=== PATIENT | male | born 1965 | race Caucasian/White ===

== ENCOUNTER 2021-03-19 15:58 | Inpatient (IN) | payer MEDICAID, SELFPAY ==
[2021-03-19] VITALS (26 sets, daily range): BP systolic 148–172; BP diastolic 80–96; PULSE 66–102; RESP 8–20; TEMP 36–36.8; O2SAT 92–100
--- NOTE | 2021-03-19 16:00 | RT.EKG_ITS ---
APPROVED REPORT Exam: Resting ECG Reason for Exam: Chest Pain Patient Location: E HR:63 bpm ECG Measurements Heart Rate 63 AXIS AK 145 P 61 QRSd 100 QRS -6 QT 429 T -53 QTc 440 Conclusion Sinus rhythm...normal P axis, V-rate 60- 99 Nonspecific T abnormalities, inferior leads...T <-0.10mV, II III aVF. Sinus. No STEMI. I have reviewed and interpreted ECG and agree with software generated interpretation.
--- NOTE | 2021-03-19 16:23 | ED.GENADUL_ITS ---
Discharge Plan Disposition Condition: Stable Discharge Details Chief Complaint: Chest Pain Admit Date/Time: 03/19/21 20:30 Admit Provider: Rubén Jaime Attending Provider: Rubén Jaime Primary Care Provider: Unknown,Unknown ED Provider: Ceci Leon Discharge Instructions Activity:: Activity as Tolerated Equipment/Supplies:: No Equipment Needed Diet:: bland low fat diet Discharge Orders Discharge Orders: Discharge Order (Routine); Ordered 03/22/21 Ordered By: Chelsea Villatoro Discharge Data Discharge Date/Time-TO BE ENTERED AT DEPARTURE: 03/19/21 21:32 Medical Decision Making Patient is a pleasant 55-year-old male, accompanied by his , with chief complaint of chest pain. Patient reports he has had chest pain for years. seems to feel that this is been worse over the past month. He reports that pain is worse with stress, laying supine at night and other potential positional changes. Patient has a very physically demanding job he does not correlate the chest pain with exertional work. He denies any shortness of breath. No pain radiating into the back. Has also noted a lump at the inferior aspect rib cage. Patient has report there is been worked up multiple times for this in the past at [facility], will try to obtain these records. He states that he is using omeprazole with out significant relief. Patient does drink daily, unclear exactly how much but does sound to be significant amount. He also smokes marijuana daily and has done so for several years. He states that he uses Biofreeze on his abdomen and that this does help with his discomfort. States he does have nausea but no vomiting. Reports that he lost approximately 15 pounds over recent months. Denies any change in bowel habits. No recent fevers or chills. No previous abdominal surgeries. On exam, patient appears intoxicated. He appears anxious and easily agitated. Is quite short that he with his . Normal cardiac auscultation. No pain elicited with palpation of the chest. Lungs are clear. His chest pain is elicited with palpation over the epigastric region. No pain with palpation elsewhere about the abdomen. Patient is easily agitated. Also cry quickly, particularly when discussing frustrations and difficulties these been having soc ially over the past year. Primary concern at this time is associated with GI upset. This does fit his history as well with it being worse when laying supine. Patient has been drinking a large amount. Concerned that the alcohol may be causing an ulcer or gastritis. Patient also reports that he drinks alcohol daily and has had improvement with topical pain relief. Questioning if this could be associated with cannabinoid induced hyperemesis and abdominal discomfort. Patient is very frustrated with my concerns for both his alcohol as well as marijuana use. Had lengthy chat with patients . She is very concerned about his overall wellbeing being in current mental status. She reports that he does have some passing thoughts of suicidality at home although he denies this to me. She r eports that he wishes he was not here. She reports that he sleeps most days. Only wakes to have alcohol. States that in the past month he is only works approximately 5 days which is very atypical for him. She states that before this episode, he was typically very outgoing and happy. States that typically their relationship is very good. Since he has not been working, she has taken a second job and has not been home as much this seems to further exacerbate his anger towards her. She reports that his mother approximately a year and a half ago and he began drinking again after that. Had been sober for approximately 4 years leading up to that. Patient has EGD scheduled for next Friday. Discussed my concerns finally regarding his physical health but also his mental health with the patient. He is in agreement to speak with women's soccer coach as well as mental health. My concern for ACS is fairly low as this is sounds much more consistent with GI upset given the positional factor as well is increased alcohol intake. He has not had any exertional symptoms, in fact has not noticed the discomfort when he is at work. However, as an abundance of caution I do feel that evaluation for potential ACS is appropriate. Patient did have imaging recently at [facility]. Will obtain these records. We will hold off on imaging at this time. Also consider potential pancreatitis. Will obtain lipase. Patient spoke with women's soccer coach. Patient spoke with , opening paper work started. He is not will to talk with them currently. Notes from outside hospital reviewed. CT was last completed on 91. Patient had mild peripancreatic inflammation. Patient was also noted to have a renal mass. Patient has been referred for MRI for further evaluation. Labs reviewed. No leukocytosis. Patient is slightly anemic. CMP significant for slightly low magnesium at 1.5, will replenish this orally. Mild transaminitis. Troponin within normal limits. Lipase is elevated at 1096. Concern for pancreatitis. However, based on previous notes it does appear this patient suffers from chronic pancreatitis. Ethyl alcohol 412. Discussed admission with the patient. I do think this would be good for his mental health as well as my concern regarding his alcohol consumption. Patient has had alcohol withdrawals including seizures in the past. Patient placed on CIWA protocol. Consulted with Dr. Jaime who agrees to admission. He would like repeat imaging. Patient admitted for pancreatitis. CT imaging obtained on patient's way to inpatient unit. HPI General Mode of arrival: ambulatory . Date/Time Provider Initiated Documentation: 03/19/21 16:23 . Limitations to Documentation: no limitations . Information obtained by: patient, family () and RN notes reviewed . History of Present Illness 55 year old M presents to the emergency department with the chief complaint of chest/epigastric pain, described as moderate, with intensity rated at 5. Quality is described as aching, and is localized to the chest (lower chest/epigastric pain). Patient reports no radiation. Patient started experiencing this year(s) (unclear exactly how long he has had the discomfort) and it has been intermittent. other things that improve symptom(s), (drinking alcohol) Other factors that worsen symptoms (laying flat) . Patient notes chest pain and loss of appetite; denies cough, fever/chills, nausea/vomiting and shortness of breath. Patient did receive the following treatments prior to arrival, none Related Data Home Medications Medication Instructions Recorded Confirmed amlodipine 10 mg PO DAILY 03/19/21 03/22/21 buspirone 7.5 mg PO BID 03/19/21 03/19/21 losartan 100 mg PO DAILY 03/19/21 03/19/21 metoprolol succinate 200 mg PO DAILY 03/19/21 03/22/21 ondansetron 4 mg PO Q6H PRN PRN 03/19/21 03/22/21 chlordiazepoxide HCl See Rx Instructions .ROUTE 03/22/21 .COMPLEX #21 cap multivitamin [Multiple Vitamins] 1 tab PO QAM #30 tab 03/22/21 omeprazole 40 mg PO DAILY 03/22/21 03/22/21 sucralfate 1 g PO AC & HS #120 tab 03/22/21 thiamine mononitrate (vit B1) 100 mg PO QAM #30 tab 03/22/21 [Vitamin B-1 (mononitrate)] Previous Rx's Medication Instructions Recorded chlordiazepoxide HCl See Rx Instructions .ROUTE 03/22/21 .COMPLEX #21 cap multivitamin [Multiple Vitamins] 1 tab PO QAM #30 tab 03/22/21 sucralfate 1 g PO AC & HS #120 tab 03/22/21 thiamine mononitrate (vit B1) 100 mg PO QAM #30 tab 03/22/21 [Vitamin B-1 (mononitrate)] Allergies Allergy/AdvReac Type Severity Reaction Status Date / Time No Known Allergies Allergy Unverified 03/19/21 16:32 Review of Systems Constitutional Constitutional: Reports as per HPI, Denies chills, Denies fever(s), Denies headache(s) and Reports lethargy ENT Ears, Nose, Mouth, and Throat: Denies dizziness and Denies headache(s) Cardiovascular Cardiovascular: Reports as per HPI, Reports chest pain at rest (when laying flat), Denies chest pain with activity (has exertional job, no pain noted at work), Denies syncope, Denies leg edema, Denies radiating jaw, neck or arm pain, Denies dyspnea and Denies dyspnea on exertion Respiratory Respiratory: Reports as per HPI, Denies cough, Denies pain on inspiration, Denies pain with cough, Denies dyspnea and Denies dyspnea on exertion Gastrointestinal Gastrointestinal: Reports as per HPI, Reports abdominal pain, Denies change in bowel habits, Denies diarrhea, Denies nausea and Denies vomiting Genitourinary Genitourinary: Denies system reviewed and no additional complaints, except as documented (denies change in urinary habits) Musculoskeletal Musculoskeletal: Reports as per HPI and Denies back pain Integumentary/Breasts Skin/Breast: Reports as per HPI and Denies rash Neurologic Neurologic: Reports as per HPI, Reports behavioral changes, Denies dizziness, Denies syncope and Denies headache(s) Psychiatric Psychiatric: Reports abnormal sleep pattern, Reports anxiety, Reports behavioral changes, Reports depression, Denies auditory hallucinations, Reports mood swings, Denies panic attacks, Denies homicidal ideation and Denies suicidal ideation [facility] Medical History (Updated 03/22/21 @ 16:03 by Chelsea Villatoro MD) Alcohol abuse Hypertension Renal mass, right Social History Smoking/Tobacco Use Status: Former Tobacco Use Smoking risk assessment performed?: Yes Alcohol Intake: current Alcohol Intake frequency: 0-2 drinks per day Substance use type: does not use Do you feel safe at home: Yes Do you feel safe in your relationship?: Yes Additional Social history: pt feels too much stress at work, c/o anxiety Exam Const General: cooperative, healthy appearing, uncomfortable, no acute distress, well developed, anxious and intoxicated appearing Nutritional Appearance: average body habitus and well nourished Orientation: alert, awake and oriented x3 HENMT Head: normal to inspection Eyes General: appearance normal, both eyes and all related structures Chest Chest: normal inspection of the chest, normal palpation of entire chest wall and no crepitus Resp Effort & Inspection: normal respiratory effort, able to speak in complete sentences and no respiratory distress Auscultation: clear to auscultation bilaterally, no rales, no rhonchi and no wheezes Cardio Rate: regular rate Rhythm: regular rhythm Heart Sounds: S1 normal and S2 normal GI Inspection: normal to inspection, no edema and non-distended Palpation: soft, no hepatosplenomegaly, not firm, no guarding, not rigid and tender in the epigastrum Auscultation: normal bowel sounds Skin General skin exam: no rashes or lesions noted Trauma: no lacerations or abrasions Neuro General: patient alert, patient awake and patient oriented x3 Cognition: normal cognition Speech: speech normal Gait: normal gait Extrem General: normal to inspection, capillary refill normal, no pedal edema, no calf tenderness and normal gait Psych Appearance: grossly normal and well kempt Mental Status: mental status grossly normal Speech and Movement: agitated Mood: anxious mood and labile mood Affect: labile affect Attitude: guarded Thought Process: normal Thought Content: normal Insight: limited Judgment: limited
[2021-03-19 17:16] LABS: Abs Immature Grans 0.01 10^3/uL (0.0-0.06); Absolute Basophil Count 0.05 10^3/uL (0.0-0.2); Absolute Eosinophil Count 0.26 10^3/uL (0.0-0.7); Absolute Lymphocyte Count 2.21 10^3/uL (1.2-3.4); Absolute Monocyte Count 0.55 10^3/uL (0.1-0.8); Absolute Neutrophil Count 2.95 10^3/uL (1.2-6.7); Basophils % 0.8; Eosinophils % 4.3; HCT 38.2 % (40.0-50.0); HGB 13.2 g/dL (13.5-17.5); Immature Grans % 0.2; Lymphocytes % 36.7; MCH 31.8 pg (27.0-33.0); MCHC 34.6 % (32.0-36.0); MPV 10.9 fL (8.0-11.0); Monocytes % 9.1; Neutrophils % 48.9; Nucleated RBC 0 %; Platelet Count 143 10^3/uL (130-400); RBC 4.15 10^6/uL (4.36-5.78); RDW 12.1 % (11.8-14.1); RDW-SD 41.1 fL; WBC 6.03 10^3/uL (4.4-10.8)
[2021-03-19 17:31] LABS: ETHANOL BLOOD 412.2 mg/dL (<3); Lipase 1096 U/L (73-393); Magnesium 1.5 mg/dL (1.8-2.4); Troponin I < 0.05 ng/mL (<0.06)
[2021-03-19 17:32] LABS: Albumin 4.1 g/dL (3.4-5.0); Alkaline Phosphatase 99 U/L (46-116); BUN 10 mg/dL (7-18); Bilirubin, Total 0.4 mg/dL (0.2-1.0); CREATININE 0.9 mg/dL (0.70-1.30); Calcium 8.6 mg/dL (8.5-10.1); Glucose 128 mg/dL (74-106); Potassium 3.6 mmol/L (3.5-5.1); Sodium 139 mmol/L (136-145); Total Protein 8.1 g/dL (6.4-8.2)
[2021-03-19 17:33] LABS: ALT 72 U/L (16-63); AST 60 U/L (15-37); Anion Gap 11.4 mmol/L (3-11); CO2 26.6 mmol/L (21.0-32.0); Chloride 101 mmol/L (98-107)
[2021-03-19] MEDS: Lactated Ringers 1,000 ML 1000 ML IV (17:51)
--- NOTE | 2021-03-19 20:15 | DI.CT_ITS ---
Exam(s) CT ABDOMEN PELVIS W EXAM: CT ABDOMEN PELVIS W CLINICAL HISTORY: pancreatitis, epigastric pain. TECHNIQUE: Imaging Protocol: Axial computed tomography images with coronal and sagittal reformatted images were created and reviewed CONTRAST MATERIAL: Intravenous: Omnipaque 100cc Oral: None COMPARISON: No exams were available for comparison FINDINGS: VISUALIZED LUNG BASES: No significant nodules nor pleural effusions evident. ABDOMEN: There is no ascites. LIVER: Liver is hypodense implying steatosis. There are no discrete focal hepatic lesions. GALLBLADDER/BILIARY: No obvious calcified gallstones. However, there appears to be a small amount of fluid around the gallbladder, possibly significant. CBD is not dilated. PANCREAS: Peripancreatic streaking is noted consistent with acute pancreatitis. Pancreatic duct is n ot dilated. No evidence of obvious pancreatic necrosis. SPLEEN: Spleen is not enlarged. No obvious intrasplenic lesions. Splenic and portal veins are paten t. ADRENALS: There are no significant adrenal masses. KIDNEYS:There is a small exophytic cyst off the medial aspect of the lower pole left kidney measuring 9 x 8 millimeters. No other left kidney findings. There is, however, a partially exophytic mass of f the lateral cortex of the right kidney which measures 2 x 1.6 cm. This is too dense to be a simple cyst. Follow-up ultrasound recommended no calculi. No hydronephrosis. No hydroureter. No obvious focal abnormality in the urinary bladder.. ABDOMINAL AORTA: Abdominal aorta is not enlarged. LYMPH NODES:There is no retroperitoneal nor paraaortic adenopathy. ABDOMINAL WALL: Small fat containing umbilical hernia. GI: There is no evidence of bowel obstruction, free air, nor abscess. PELVIS: GI: No evidence of appendicitis.No evidence of sigmoid diverticulitis. LYMPH NODES: There is no intrapelvic nor inguinal adenopathy. REPRODUCTIVE: Prostate size upper normal. URINARY BLADDER: No calculi nor obvious masses evident OSSEOUS: Disc space narrowing L5-S1. No significant osseous lesions IMPRESSION: 1. Main acute finding here is acute pancreatitis. There is peripancreatic streaking but presently no evidence fluid collection or pseudocyst. 2. Mild amount of fluid around the gallbladder. No obvious calcified gallstones. This could be furt her investigated with ultrasound. 3. In the lateral cortex of the right kidney there is a 2 x 1.6 cm partially exophytic nodule which i s too dense to be a simple cyst in either represents complicated cyst or neoplasm. Recommend follow- up ultrasound. RADIATION DOSE DELIVERED: 764.06mGy.cm Total DLP DATA REPOSITORY: All CT scans at this facility are submitted to the National Radiology Data Registry (NRDR) Dose Index Registry (DIR) with the [employer] (ACR). RADIATION OPTIMIZATION: All CT scans at this facility use at least one of these dose optimization te chniques: automated exposure control; mA and/or kV adjustment per patient size (includes targeted exa ms where dose is matched to clinical indication); or iterative reconstruction.
--- NOTE | 2021-03-19 20:18 | W.PM.HP.N ---
Date of service: 03/19/21 Time of Service: 20:18 Assessment and Plan Assessment and plan (1) Pancreatitis: Status: Chronic Assessment and plan: Alcoholic pancreatitis. Will place NPO with IVF and prn analgesics and antiemetics. For the alcohol will place on scheduled Librium along with CIWA. 1. Pancreatitis: NPO, IVF, prn analgesics and antiemetics. I have also requested CT imaging from ER 2. EtOH: Scheduled Librium, CIWA, banana bag 3. HTN: usual meds History of Present Illness History of Present Illness Chief Complaint: abd pain Narrative: 55 male with h/o alcohol abuse, reports two years of epigastric pain, non-radiating. Pain is worsened by supine position and by eating solids, though is eased by some liquids, such as chicken broth and, he says, vodka. He notes that in fact he has hardly eaten at all for the past week. e generally gets his care at [facility] and CT from last month demonstrated peripancreatic stranding and, incidentally, a renal mass. He comes in tonightt due to ongoing pain and nausea and, he says, because he dosen't think the folks at [facility] are managing him properly. Here in ER findings of note for normal electrolytes save a Mg 0f 1.5, and lipase 1096, AST 60, ALT 92. I was asked to evaluate for admission. Last drink just prior to visit and EtOH level 412. Says he once had withdrawal seizures when he stopped drinking suddenly. Review of Systems All systems reviewed & are unremarkable except as noted in HPI and below [facility] Medical History Alcohol abuse Hypertension Social History Smoking/Tobacco Use Status: Former Tobacco Use Smoking risk assessment performed?: Yes Alcohol Intake: current Alcohol Intake frequency: 0-2 drinks per day Substance use type: does not use Do you feel safe at home: Yes Do you feel safe in your relationship?: Yes Additional Social history: pt feels too much stress at work, c/o anxiety Meds Allergies and Home Medications Allergies Allergy/AdvReac Type Severity Reaction Status Date / Time No Known Allergies Allergy Unverified 03/19/21 16:32 Home Medications Medication Instructions Recorded Confirmed Type amlodipine 03/19/21 History buspirone 7.5 mg PO BID 03/19/21 03/19/21 History losartan 100 mg PO DAILY 03/19/21 03/19/21 History metoprolol succinate PO 03/19/21 History omeprazole mg PO BID 03/19/21 History ondansetron 4 mg PO Q6H 03/19/21 03/19/21 History Exam Narrative Exam Narrative: 160/95, 81, 36.0, 16, 100% RA. HEENT atraumatic, anicteric; neck supple; lungs clear; heart RRR; abdomen soft and NT w/o HSM; extremities w/o edema; neuro Ox3, lucid, moves all 4s Results Labs Result diagrams: 03/19/21 17:01 03/19/21 17:01 Labs: Laboratory Results - last 24 hr 03/19/21 03/19/21 03/19/21 17:01 17:01 17:01 WBC 6.03 RBC 4.15 L Hgb 13.2 L Hct 38.2 L MCV 92.0 MCH 31.8 MCHC 34.6 RDW 12.1 Plt Count 143 MPV 10.9 Immature Gran % 0.2 Neutrophils % 48.9 Lymphocytes % 36.7 Monocytes % 9.1 Eosinophils % 4.3 Basophils % 0.8 Nucleated RBC % 0 Absolute Neutrophils 2.95 Absolute Lymphocytes 2.21 Absolute Monocytes 0.55 Absolute Eosinophils 0.26 Absolute Basophils 0.05 Sodium 139 Potassium 3.6 Chloride 101 Carbon Dioxide 26.6 Anion Gap 11.4 H BUN 10 Creatinine 0.9 Estimated GFR/1.73 m2 >= 60.00 Glucose 128 H Calcium 8.6 Magnesium 1.5 L Total Bilirubin 0.4 AST 60 H ALT 72 H Alkaline Phosphatase 99 Troponin I < 0.05 Total Protein 8.1 Albumin 4.1 Lipase 1096 H Ethyl Alcohol 412.2 Last Vital Signs Temp 36 C L 03/19/21 16:25 Pulse 81 03/19/21 16:25 Resp 16 03/19/21 16:38 BP 160/95 H 03/19/21 16:25 Pulse Ox 100 03/19/21 16:25 PAWSS Have you Been Recently Intoxicated or Drunk Within the Last 30 days?: Yes Have you Ever Experienced Previous Episodes of Alcohol Withdrawal?: No Have you ever Experienced Withdrawal Seizures?: No Have you ever Experienced Delirium Tremens(DT)s?: Yes Have you ever undergone Alcohol Rehabilitation Treatment (i.e, inpt ot outpatient treatment programs)?: Yes Have you ever Experienced Blackouts?: No Have you ever Combined Alcohol with other Downers within the last 90 days?: No Have you ever Combined Alcohol with any other Substance of Abuse during the last 90 days?: Yes Positive Blood Alcohol level on Presentation? [PCS.BAL]: Unable to Obtain Evidence of Increased Autonomic Activity (i.e. HR>120, tremor, sweating, agitation, nausea)?: No Result: 5
[2021-03-19] MEDS: Normal Saline - Diluent 50 ML VIAL IV (21:29)
[2021-03-19] MEDS: Omnipaque 350 MG/ML 100 ML BTL IJ (21:29)
--- NOTE | 2021-03-19 22:50 | DI.VRAD_ITS ---
PROCEDURE INFORMATION: Exam: CT Abdomen And Pelvis With Contrast Exam date and time: 03/19/2021 8:18 PM Age: 55 years old Clinical indication: Abdominal pain; Patient HX: Pancreatitis, epigastric pain TECHNIQUE: Imaging protocol: Computed tomography of the abdomen and pelvis with contrast. COMPARISON: No relevant prior studies available. FINDINGS: Liver: Normal. No mass. Gallbladder and bile ducts: Normal. No calcified stones. No ductal dilation. Pancreas: [id number] peripancreatic fat stranding surrounding the head and neck of the pancreas and to a lesser extent the body and tail. Spleen: Normal. No splenomegaly. Adrenal glands: Normal. No mass. Kidneys and ureters: Exophytic cortical renal cyst measuring 8 mm arising from the midpole of the left kidney. No hydronephrosis. Bilateral diffusely distended ureters most likely secondary to urinary reflux. Stomach and bowel: Unremarkable. No obstruction. No mucosal thickening. Appendix: No evidence of appendicitis. Intraperitoneal space: Unremarkable. No free air. No significant fluid collection. Vasculature: The vasculature demonstrates diffuse mild atherosclerotic calcification. Lymph nodes: Unremarkable. No enlarged lymph nodes. Urinary bladder: Unremarkable as visualized. Reproductive: Unremarkable as visualized. Bones/joints: Unremarkable. No acute fracture. Soft tissues: Unremarkable. Other findings: Heterogeneous nodular lesion most likely solid measuring 2.1 cm. IMPRESSION: 1. Findings compatible with acute pancreatitis. No evidence of peripancreatic fluid collections or pseudocyst. 2.Heterogeneous nodular lesion most likely solid measuring 2.1 cm suspicious for neoplasia. Recommend further evaluation with ultrasound and tissue sampling. 3. Bilateral diffusely distended ureters most likely secondary to urinary reflux. Dictated and Authenticated by: Javi Bhatt MD. Ordering:SYLVIA Ornelas MD
[2021-03-20] VITALS (79 sets, daily range): BP systolic 127–174; BP diastolic 71–115; PULSE 69–126; RESP 9–25; TEMP 35.9–37.2; O2SAT 93–100
[2021-03-20] MEDS: MAGNESIUM SULFATE 8.12 MEQ, MULTIVITAMIN 10 ML, THIAMINE 100 MG, FOLIC ACID 1 MG in Nor... 168.867 MG IV (00:15)
[2021-03-20] MEDS: MAGNESIUM SULFATE 2 GM/50 ML BAG IVPB (00:22)
[2021-03-20] MEDS: Folic Acid 50 MG/10 ML VIAL ×2 (00:37→05:24)
[2021-03-20] MEDS: Thiamine 200 MG/2 ML VIAL ×2 (00:37→05:23)
--- NOTE | 2021-03-20 06:12 | NUR.NOTE ---
Spoke with pts . She states he drinks approx 2 man cans of twisted tea a day and a pint of vodlka. She states she is really concerned about him wanting to just leave AMA to be able to go home and drink.
[2021-03-20] MEDS: Lactated Ringers 1,000 ML 150 ML IV ×2 (06:15→13:38)
[2021-03-20 07:43] LABS: Anion Gap 14.2 mmol/L (3-11); BUN 5 mg/dL (7-18); CO2 23.8 mmol/L (21.0-32.0); CREATININE 0.8 mg/dL (0.70-1.30); Calcium 7.8 mg/dL (8.5-10.1); Chloride 102 mmol/L (98-107); Glucose 105 mg/dL (74-106); Lipase 591 U/L (73-393); Sodium 140 mmol/L (136-145)
[2021-03-20 08:07] LABS: COVID-19 PCR Negative (Negative); Source Nasal/Nares
--- NOTE | 2021-03-20 08:20 | W.PM.PROGNOT ---
Date of Service Date of service: 03/20/21 Time of Service: 13:05 Assessment and Plan Assessment and plan (1) Pancreatitis: Status: Chronic Assessment and plan: Alcoholic pancreatitis. Improving. Continue IVF and trial clear liquid diet. (2) Alcohol withdrawal: Status: Acute Assessment and plan: Seems to be doing well on the benzodiazepine EtOH w/d protocol. Will provide MVI/thiamine. Monitor in the ICU on CIWA. Continue scheduled librium. Low threshold to switch to the phenobarbital protocol should the withdrawal escalate. (3) H/O gastric ulcer: Status: Acute Assessment and plan: Started on PPI/carafate. D/c chemical DVT ppx and provide mechanical DVT ppx. The patient should follow up for the EGD as outpatient - may have to be rescheduled. (4) Renal mass, right: Status: Acute Assessment and plan: Seen by urology - will need outpatient bx. (5) Hypokalemia: Status: Acute Assessment and plan: Replete, recheck in am (6) Hypomagnesemia: Status: Acute Assessment and plan: Replete, recheck in am (7) DVT prophylaxis: Status: Acute Assessment and plan: SCDs Chemical DVT ppx is on hold due to reported h/o gastric ulcers. (8) Discharge planning issues: Status: Acute Assessment and plan: Full code Upgraded to ICU level of care. Total Critical Care Time 35 minutes. Subjective Subjective Interval history since last seen: Withdrawing from alcohol. CIWA 22. Sweating, nauseated/dry heaving, confused this am. Since then, was medicated with scheduled librium and prn IV lorazepam and has been calm, sleeping, cooperative. Per , he was supposed to have an EGD at [facility] this week. The patient denies dizziness, chest pain, shortness of breath. He also denies nausea and abdominal pain. He is interested in trying a diet. Exam Narrative Exam Narrative: General: Somnolent middle-aged male who is easily arousable, A&Ox3 (initially thinks it's [facility], but quickly remembers that he is at [facility]). Not at all tremulous. HEENT: EOMI, MMM Heart: RRR, no m/r/g Lungs: CTAB Abdomen: soft, nontender, nondistended Extremities: no edema BLE's Objective Last Vital Signs Temp 37.2 C 03/20/21 03:34 Pulse 87 03/20/21 06:30 Resp 19 03/20/21 06:40 BP 160/85 H 03/20/21 06:30 Pulse Ox 97 03/20/21 06:40 Laboratory Results - last 24 hr 03/19/21 03/19/21 03/19/21 17:01 17:01 17:01 WBC 6.03 RBC 4.15 L Hgb 13.2 L Hct 38.2 L MCV 92.0 MCH 31.8 MCHC 34.6 RDW 12.1 Plt Count 143 MPV 10.9 Immature Gran % 0.2 Neutrophils % 48.9 Lymphocytes % 36.7 Monocytes % 9.1 Eosinophils % 4.3 Basophils % 0.8 Nucleated RBC % 0 Absolute Neutrophils 2.95 Absolute Lymphocytes 2.21 Absolute Monocytes 0.55 Absolute Eosinophils 0.26 Absolute Basophils 0.05 Sodium 139 Potassium 3.6 Chloride 101 Carbon Dioxide 26.6 Anion Gap 11.4 H BUN 10 Creatinine 0.9 Estimated GFR/1.73 m2 >= 60.00 Glucose 128 H Calcium 8.6 Magnesium 1.5 L Total Bilirubin 0.4 AST 60 H ALT 72 H Alkaline Phosphatase 99 Troponin I < 0.05 Total Protein 8.1 Albumin 4.1 Lipase 1096 H Ethyl Alcohol 412.2 COVID-19 Source SARS-CoV-2 (PCR) 03/19/21 03/19/21 03/20/21 19:28 21:00 06:12 WBC RBC Hgb Hct MCV MCH MCHC RDW Plt Count MPV Immature Gran % Neutrophils % Lymphocytes % Monocytes % Eosinophils % Basophils % Nucleated RBC % Absolute Neutrophils Absolute Lymphocytes Absolute Monocytes Absolute Eosinophils Absolute Basophils Sodium 140 Potassium 3.0 L Chloride 102 Carbon Dioxide 23.8 Anion Gap 14.2 H BUN 5 L Creatinine 0.8 Estimated GFR/1.73 m2 >= 60.00 Glucose 105 Calcium 7.8 L Magnesium Total Bilirubin AST ALT Alkaline Phosphatase Troponin I Cancelled Total Protein Albumin Lipase 591 H Ethyl Alcohol COVID-19 Source Nasal/Nares SARS-CoV-2 (PCR) Negative PAWSS Have you Been Recently Intoxicated or Drunk Within the Last 30 days?: Yes Have you Ever Experienced Previous Episodes of Alcohol Withdrawal?: No Have you ever Experienced Withdrawal Seizures?: No Have you ever Experienced Delirium Tremens(DT)s?: Yes Have you ever undergone Alcohol Rehabilitation Treatment (i.e, inpt ot outpatient treatment programs)?: Yes Have you ever Experienced Blackouts?: No Have you ever Combined Alcohol with other Downers within the last 90 days?: No Have you ever Combined Alcohol with any other Substance of Abuse during the last 90 days?: Yes Positive Blood Alcohol level on Presentation? [PCS.BAL]: Unable to Obtain Evidence of Increased Autonomic Activity (i.e. HR>120, tremor, sweating, agitation, nausea)?: No Result: 5
[2021-03-20] MEDS: Pantoprazole 40 MG VIAL IVP ×2 (08:35→19:59)
[2021-03-20] MEDS: amLODIPine 10 MG TAB PO (08:36)
[2021-03-20] MEDS: Ondansetron 4 MG/2 ML VIAL IVP (08:36)
[2021-03-20] MEDS: Enoxaparin 40 MG/0.4 ML SYR SC (08:36)
[2021-03-20] MEDS: MAGNESIUM SULFATE 4 GM/100 ML BAG IVPB (08:36)
[2021-03-20] MEDS: LORazepam 1 MG TAB PO/SL ×2 (08:36→17:02)
[2021-03-20] MEDS: Multivitamin TAB 1 TAB PO (08:37)
[2021-03-20] MEDS: Thiamine 100 MG TAB PO (08:37)
[2021-03-20] MEDS: chlordiazePOXIDE 25 MG CAP PO ×4 (08:37→20:00)
[2021-03-20] MEDS: Losartan 50 MG TAB 100 MG PO (08:37)
[2021-03-20] MEDS: Metoprolol CR 50 MG TABCR 200 MG PO (08:37)
[2021-03-20] MEDS: Folic Acid 1 MG TAB PO (08:38)
[2021-03-20] MEDS: Potassium Chloride 20 MEQ TABCR PO (08:38)
[2021-03-20] MEDS: POTASSIUM CHLORIDE 20 MEQ/100 ML BAG 50 MEQ IVPB ×4 (08:38→13:57)
[2021-03-20] MEDS: Normal Saline Flush 10 ML SYR IVP ×2 (08:40→20:05)
--- NOTE | 2021-03-20 08:56 | W.UROLOGYCON ---
Date of service: 03/20/21 Assessment and Plan Assessment and plan (1) Renal mass, right: Status: Acute Assessment and plan: The patient is sedated and is not able to interact with me at the current time. I will attempt to discuss her findings with him later during his hospitalization. Our typical recommendation would be a percutaneous biopsy. Depending on the results, treatments generally range from observation to partial nephrectomy to ablation (cryotherapy or HIFU). These technologies are not available locally, and will require a referral to a tertiary care center after he is discharged. History of Present Illness History of Present Illness Chief Complaint: Renal mass Narrative: This is a 55-year-old gentleman who is currently hospitalized with pancreatitis and alcohol withdrawal. He has been seen both at [facility] and at our facility and has had imaging studies. He has a newly identified right renal mass which has not yet been investigated. I was not able to discuss this with the patient initially due to his mental status and medications, but I was able to discuss it with the patient on 03/22/2021 prior to his discharge. He tells me he is aware of the mass but is not having any flank pain. He has seen one episode of gross hematuria. I do not have any microscopic urinalysis results He has not had any previous urologic surgery Review of Systems Unobtainable due to mental status [facility] Medical History (Updated 03/22/21 @ 16:03 by Chelsea Villatoro MD) Alcohol abuse Hypertension Renal mass, right Social History Smoking/Tobacco Use Status: Former Tobacco Use Smoking risk assessment performed?: Yes Alcohol Intake: current Alcohol Intake frequency: 0-2 drinks per day Substance use type: does not use Do you feel safe at home: Yes Do you feel safe in your relationship?: Yes Additional Social history: pt feels too much stress at work, c/o anxiety Exam Narrative Exam Narrative: He is sedated at the time of my initial evaluation His vital signs are documented elsewhere in his chart I reviewed his CT scan (done with IV contrast) on the PACS system. There is a 2 to 3 cm peripherally located renal mass on the right kidney. The mass appears solid (I measure it at 77 Hounsfield units). I was able to obtain previous films from [facility]. The lesion was a identified on a similar CT of the abdomen and pelvis from last month. An abdominal ultrasound done a few years ago did not demonstrate any solid or cystic right sided renal mass. The initial reading of the CT from the [facility] radiologist mentions dilated ureters likely related to reflux, but I do not visualize dilated ureters on either of his scans. Results Last Vital Signs Temp 37.2 C 03/20/21 03:34 Pulse 87 03/20/21 06:30 Resp 19 03/20/21 06:40 BP 160/85 H 03/20/21 06:30 Pulse Ox 97 03/20/21 06:40 Labs Result diagrams: 03/22/21 06:53 03/22/21 06:53 Labs: Laboratory Results - last 24 hr 03/19/21 03/19/21 03/19/21 17:01 17:01 17:01 WBC 6.03 RBC 4.15 L Hgb 13.2 L Hct 38.2 L MCV 92.0 MCH 31.8 MCHC 34.6 RDW 12.1 Plt Count 143 MPV 10.9 Immature Gran % 0.2 Neutrophils % 48.9 Lymphocytes % 36.7 Monocytes % 9.1 Eosinophils % 4.3 Basophils % 0.8 Nucleated RBC % 0 Absolute Neutrophils 2.95 Absolute Lymphocytes 2.21 Absolute Monocytes 0.55 Absolute Eosinophils 0.26 Absolute Basophils 0.05 Sodium 139 Potassium 3.6 Chloride 101 Carbon Dioxide 26.6 Anion Gap 11.4 H BUN 10 Creatinine 0.9 Estimated GFR/1.73 m2 >= 60.00 Glucose 128 H Calcium 8.6 Magnesium 1.5 L Total Bilirubin 0.4 AST 60 H ALT 72 H Alkaline Phosphatase 99 Troponin I < 0.05 Total Protein 8.1 Albumin 4.1 Lipase 1096 H Ethyl Alcohol 412.2 COVID-19 Source SARS-CoV-2 (PCR) 03/19/21 03/19/21 03/20/21 19:28 21:00 06:12 WBC RBC Hgb Hct MCV MCH MCHC RDW Plt Count MPV Immature Gran % Neutrophils % Lymphocytes % Monocytes % Eosinophils % Basophils % Nucleated RBC % Absolute Neutrophils Absolute Lymphocytes Absolute Monocytes Absolute Eosinophils Absolute Basophils Sodium 140 Potassium 3.0 L Chloride 102 Carbon Dioxide 23.8 Anion Gap 14.2 H BUN 5 L Creatinine 0.8 Estimated GFR/1.73 m2 >= 60.00 Glucose 105 Calcium 7.8 L Magnesium Total Bilirubin AST ALT Alkaline Phosphatase Troponin I Cancelled Total Protein Albumin Lipase 591 H Ethyl Alcohol COVID-19 Source Nasal/Nares SARS-CoV-2 (PCR) Negative
[2021-03-20] MEDS: LORazepam 2 MG/ML VIAL IVP (09:11)
--- NOTE | 2021-03-20 09:11 | PDOC.CMIN ---
- If Service Date Differs Date of service: 03/20/21 Time of Service: 09:11 Care Management Initial Assess REASON FOR HOSPITALIZATION:: Pancreatitis PAST MEDICAL HISTORY/PAST SURGICAL HISTORY:: Medical History . Alcohol abuse. Hypertension PREVIOUS FUNCTIONAL STATUS/SOCIAL/FAMILY SUPPORTS:: Juancarlos, ty Chen, lives in [place], [place] with his Arline. They do not have any children. April works at a [employer] and is independent at baseline. He does not currently receive any community services. CURRENT FUNCTIONAL STATUS:: April was lying in bed when CM met with him. He was a bit sleepy but willing to engage in conversation. This morning his CIWA score was 22 and he required 4mg of IV Ativan. He explained that he has been having pain from his pancreatitis and drinks alcohol to dull the pain. Per staff, he denied that his symptoms are related to alcohol withdrawal although he did share that he has had seizures before when trying to detox. A referral for a [facility] will be placed when he is more awake, hopefully tomorrow. ADVANCE DIRECTIVES:: none on file at [facility] Has patient been provided with info about the portal/API?: Yes Did the patient sign up for the portal?: No CODE STATUS:: Full Code INSURANCE COVERAGE / FINANCIAL ISSUES:: Medicaid CURRENT HOME/COMMUNITY SERVICES/EQUIPMENT:: none PRIMARY CARE PHYSICIAN:: none local POTENTIAL DISCHARGE NEEDS:: Follow up with PCP and plan of care. May benefit from alcohol rehab PATIENT/FAMILY EDUCATION NEEDS:: Review of discharge instructions,medications, activity, follow up plan, Ask Me Three TRANSPORTATION:: via private vehicle with family PLAN:: April will likely be discharged home with no new services except for help with his substance use disorder, if he is agreeable. He will follow up with his community providers and plan of care and transport with family. CM will continue to support Juancarlos and assess for ongoing discharge needs.
--- NOTE | 2021-03-20 10:56 | PHA.REVIEW ---
Pharmacy Admission Review - Admission Clinical Review (Last Updated 03/20/21 @ 08:59 by Feliz Clemens MD) Renal mass, right (Acute) No Known Allergies Allergy (Unverified 03/19/21 16:32) Resuscitation Status Full Code Height 6 ft Weight 80.7 kg - Renal Dosing Renal Dosing: BUN 5 mg/dL (7-18) L 03/20/21 06:12 Creatinine 0.8 mg/dL (0.70-1.30) 03/20/21 06:12 Medications needing adjustments: Reviewed (CRCL ~114ML/MIN) - Anticoagulation Anticoagulation: Hgb 13.2 g/dL (13.5-17.5) L 03/19/21 17:01 Hct 38.2 % (40.0-50.0) L 03/19/21 17:01 Plt Count 143 10^3/uL (130-400) 03/19/21 17:01 Creatinine 0.8 mg/dL (0.70-1.30) 03/20/21 06:12 DVT Prophylaxis: Reviewed Medications: Enoxaparin Therapeutic Anticoagulation: N/A - Relevant Labs Sodium 140 mmol/L (136-145) 03/20/21 06:12 Potassium 3.0 mmol/L (3.5-5.1) L 03/20/21 06:12 Chloride 102 mmol/L (98-107) 03/20/21 06:12 Magnesium 1.5 mg/dL (1.8-2.4) L 03/19/21 17:01 Electrolytes, C-Reactive P, ESR: Reviewed (MAG AND K REPLACED) - DM Control DM Control: Glucose 105 mg/dL (74-106) 03/20/21 06:12 Insulin Dosing: N/A - Heart Failure/NE Heart Failure/NE: Troponin I Cancelled 03/19/21 19:28 - BP Control BP Control: Blood Pressure [Left Arm] 154/88 Blood Pressure [Left Arm] 145/72 Blood Pressure 127/71 Blood Pressure 160/85 Blood Pressure 174/115 Blood Pressure 165/85 Blood Pressure 148/81 Blood Pressure 144/87 Blood Pressure 159/83 Blood Pressure 154/88 Blood Pressure 153/83 Blood Pressure 165/91 Blood Pressure 163/86 Blood Pressure 142/71 Blood Pressure 141/76 Blood Pressure 145/72 Blood Pressure 157/87 Blood Pressure 152/80 Blood Pressure 155/87 Blood Pressure 148/89 Blood Pressure 154/85 Blood Pressure 153/80 - Qtc Review If Elevated: N/A (440) - IV to PO Switch IV Medications: Reviewed (IVF AND SOME MEDS IV) - Home Meds Home Med List reviewed: Reviewed (meds ordered but home list has ? next to some meds so may not have been reviewed by provider yet) - Current meds Current Medication Order Review: Reviewed - Comments Comments/Follow Ups: CIWA, lorazepam prn and CONNIE librium. may switch to phenobarb per MD,
[2021-03-20] MEDS: Sucralfate 1 GM TAB PO ×2 (17:02→21:39)
[2021-03-21] VITALS (30 sets, daily range): BP systolic 123–164; BP diastolic 79–129; PULSE 63–97; RESP 7–23; TEMP 36.1–37.1; O2SAT 99
[2021-03-21] MEDS: Lactated Ringers 1,000 ML 150 ML IV (03:12)
[2021-03-21] MEDS: LORazepam 1 MG TAB PO/SL ×4 (06:24→20:48)
[2021-03-21 07:41] LABS: ALT 62 U/L (16-63); AST 64 U/L (15-37); Albumin 3.8 g/dL (3.4-5.0); Alkaline Phosphatase 108 U/L (46-116); Anion Gap 9.1 mmol/L (3-11); BUN 6 mg/dL (7-18); Bilirubin, Direct 0.1 mg/dL (0.0-0.2); Bilirubin, Total 0.6 mg/dL (0.2-1.0); CO2 27.9 mmol/L (21.0-32.0); CREATININE 0.9 mg/dL (0.70-1.30); Calcium 8.3 mg/dL (8.5-10.1); Chloride 98 mmol/L (98-107); Glucose 186 mg/dL (74-106); Magnesium 1.7 mg/dL (1.8-2.4); Potassium 3.1 mmol/L (3.5-5.1); Sodium 135 mmol/L (136-145); Total Protein 8.1 g/dL (6.4-8.2)
--- NOTE | 2021-03-21 08:12 | W.PM.PROGNOT ---
Date of Service Date of service: 03/21/21 Time of Service: 10:38 Assessment and Plan Assessment and plan (1) Alcohol withdrawal: Status: Acute Assessment and plan: Concern that it might actually be escalating. Keep in the ICU until at least the afternoon to see in which direction the withdrawal is going. Continue scheduled librium and prn ativan per CIWA. Discussed with Dr Alan - will avoid switching to phenobarbital at this point as the patient has a large amount of benzos on board. Continue vitamins. (2) Pancreatitis: Status: Chronic Assessment and plan: Alcoholic pancreatitis. Advance diet to bland low acid. D/c IVF. (3) H/O gastric ulcer: Status: Acute Assessment and plan: Continue PPI/carafate. The patient should follow up for the EGD as outpatient - needs to be rescheduled. I do not think he should have an EGD on this admission and certainly not while he is going through alcohol withdrawal unless he bleeds - which he is not. (4) Renal mass, right: Status: Acute Assessment and plan: Seen by urology - will need outpatient bx. This is being arranged via the urology office. (5) Hypokalemia: Status: Acute Assessment and plan: Replete, recheck in am (6) Hypomagnesemia: Status: Acute Assessment and plan: Replete, recheck in am (7) DVT prophylaxis: Status: Acute Assessment and plan: SCDs Chemical DVT ppx is on hold due to reported h/o gastric ulcers. (8) Discharge planning issues: Status: Acute Assessment and plan: Full code Keep in ICU until at least this afternoon to get a better sense of which direction his withdrawal is going. Discussed with Dr Alan. Subjective Subjective Interval history since last seen: Denies dizziness, chest pain, shortness of breath, nausea, abdominal pain. Tolerating PO(clears). Diet is being advanced to bland low fat this am. A&Ox1, CIWA 8 this am. Has just received 2 mg of IV ativan. Confirms he has a h/o of EtOH withdrawal seizure. Exam Narrative Exam Narrative: General: Somnolent middle-aged male who is easily arousable, not tremulous at the time of my exam, A&Ox1-2 (still thinks it's [facility]) HEENT: EOMI, MMM Heart: RRR, no m/r/g Lungs: CTAB Abdomen: soft, nontender, nondistended Extremities: no edema BLE's Objective Last Vital Signs Temp 36.8 C 03/21/21 04:25 Pulse 82 03/21/21 04:00 Resp 15 03/21/21 04:25 BP 161/101 H 03/21/21 04:00 Pulse Ox 99 03/21/21 04:25 Laboratory Results - last 24 hr 03/19/21 03/21/21 21:00 06:20 Sodium 135 L Potassium 3.1 L Chloride 98 Carbon Dioxide 27.9 Anion Gap 9.1 BUN 6 L Creatinine 0.9 Estimated GFR/1.73 m2 >= 60.00 Glucose 186 H D Calcium 8.3 L Magnesium 1.7 L Total Bilirubin 0.6 Conjugated Bilirubin 0.1 AST 64 H ALT 62 Alkaline Phosphatase 108 Total Protein 8.1 Albumin 3.8 SARS-CoV-2 (PCR) Negative PAWSS Have you Been Recently Intoxicated or Drunk Within the Last 30 days?: Yes Have you Ever Experienced Previous Episodes of Alcohol Withdrawal?: No Have you ever Experienced Withdrawal Seizures?: No Have you ever Experienced Delirium Tremens(DT)s?: Yes Have you ever undergone Alcohol Rehabilitation Treatment (i.e, inpt ot outpatient treatment programs)?: Yes Have you ever Experienced Blackouts?: No Have you ever Combined Alcohol with other Downers within the last 90 days?: No Have you ever Combined Alcohol with any other Substance of Abuse during the last 90 days?: Yes Positive Blood Alcohol level on Presentation? [PCS.BAL]: Unable to Obtain Evidence of Increased Autonomic Activity (i.e. HR>120, tremor, sweating, agitation, nausea)?: No Result: 5
[2021-03-21] MEDS: Pantoprazole 40 MG VIAL IVP (08:37)
[2021-03-21] MEDS: Normal Saline Flush 10 ML SYR IVP ×2 (08:38→17:24)
[2021-03-21] MEDS: Thiamine 100 MG TAB PO (08:39)
[2021-03-21] MEDS: Folic Acid 1 MG TAB PO (08:39)
[2021-03-21] MEDS: Losartan 50 MG TAB 100 MG PO (08:39)
[2021-03-21] MEDS: chlordiazePOXIDE 25 MG CAP PO ×4 (08:39→20:38)
[2021-03-21] MEDS: amLODIPine 10 MG TAB PO (08:39)
[2021-03-21] MEDS: Sucralfate 1 GM TAB PO ×4 (08:39→20:38)
[2021-03-21] MEDS: Metoprolol CR 50 MG TABCR 200 MG PO (08:39)
[2021-03-21] MEDS: Multivitamin TAB 1 TAB PO (08:39)
[2021-03-21] MEDS: POTASSIUM CHLORIDE 20 MEQ/100 ML BAG 50 MEQ IVPB ×4 (08:40→13:13)
[2021-03-21] MEDS: MAGNESIUM SULFATE 2 GM/50 ML BAG IVPB (08:41)
--- NOTE | 2021-03-21 08:56 | PUCC_ITS ---
General Date of Service Date of service: 03/21/21 Time of Service: 08:15 Reason for Admission to ICU: Pancreatitis, alcohol withdrawal Assessment and Plan Assessment and plan (1) Alcohol withdrawal: Status: Acute Qualifiers: Complication of substance-induced condition: uncomplicated Qualified Code(s): F10.230 - Alcohol dependence with withdrawal, uncomplicated (2) Hypomagnesemia: Status: Acute (3) Hypokalemia: Status: Acute (4) Renal mass, right: Status: Acute (5) H/O gastric ulcer: Status: Acute (6) Pancreatitis: Status: Chronic Qualifiers: Chronicity: chronic Pancreatitis type: alcohol induced Qualified Code(s): K86.0 - Alcohol-induced chronic pancreatitis (7) Hypocalcemia: Status: Acute Assessment and plan: This is a 55-year-old man with alcohol abuse and chronic pancreatitis who presents with acute abdominal pain likely secondary to acute on chronic pancreatitis and alcohol withdrawal. He has been well managed on the floor however required ICU transfer in the setting of increasing benzodiazepine need for his alcohol withdrawal. He is being maintained on Librium and as needed Ativan per [facility] protocol. Is doing quite well this morning with improved abdominal pain, he tolerated p.o. yesterday, and no active signs of withdrawal during my assessment. He would be safe for transfer back to [facility] if he is no longer tolerating higher doses of Ativan. Recommendations Pulmonary: No acute concerns Cardiac: h/o HTN - continue home meds - care per hospitalist service Renal: Incidentally discovered renal mass - outpatient biopsy likely needed - urology has been consulted - recs appreciated Hypomagnesemia - replete to 2.0 Hypokalemia - replete to 4.0 Hypocalcemia - continue to monitor I&O: Intake & Output 03/18/21 03/19/21 03/20/21 03/21/21 23:59 23:59 23:59 23:59 Intake Total 1480 / 1480 4784.867 / 4784.867 2160 / 2160 Output Total 4525 / 4525 2250 / 2250 Balance 1480 / 1480 259.867 / 259.867 -90 / -90 Weight 80.7 kg 80.7 kg Daily Fluid Goal:: Even GI Nutrition: Pancreatitis, improving - has been appropriately resuscitated - no need for further IVF - ok for PO diet - no need to trend lipase h/o gastric ulcer - on PPI (home med) - sucralfate added during admission Date of Last Bowel Movement: 03/12/21 Infectious Disease: No acute concerns Hematologic: No acute concerns Neurologic: EtOH withdrawl - last drink 03/19/21 - positive EtOH level on admission - s/p banana bag - agree with folate, thiamine, MVI - on CIWA protocol - tolerating well - recommend against switching to phenobarb given amount of benzos on board - on Librium Endocrine: No acute concerns Lines: PIV Prophylaxis: would recommend chemical DVT ppx on PPI Code Status: Resuscitation Status Full Code Subjective Critical and life-threatening events over the past 24 hours: This is a 55-year-old male with a history of alcohol abuse and chronic abdominal pain. He presents with ongoing pain and nausea as well as stating reduced p.o. intake for the previous week. He receives most of his care at [facility] and did have a CAT scan from last month demonstrating peripancreatic stranding as well as an incidental renal mass. In the emergency department he was found to have an elevated lipase as well as a positive alcohol level 412. He does have a history of alcohol withdrawal seizures in the setting of abstaining from alcohol. He was being managed on the floor with IV fluids when he developed the need for increasing amounts of benzodiazepines in the setting of alcohol withdrawal. He has been on Librium however when he began to require more Ativan to control his withdrawal symptoms he was transferred to the ICU. On my assessment the patient is doing quite well. He has no signs of withdrawal at this time. He was able to tolerate food yesterday and seems as though his pancreatitis is significantly improved. He does endorse some nausea and abdominal pain but it is very similar to what it typically is at baseline. Exam Const General: no acute distress Nutritional Appearance: well nourished [facility] Head: normocephalic Ears: external ears normal and no periauricular adenopathy General nose exam: nasal mucous membranes and turbinates normal Face and sinus: sinuses nontender Mouth: oropharynx normal and moist mucous membranes Teeth and gingiva: dentition normal Eyes General: appearance normal, both eyes and all related structures Pupils: PERRL Neck Neck: normal visual inspection and no lymphadenopathy Chest Chest: normal inspection of the chest Resp Effort & Inspection: normal respiratory effort Auscultation: clear to auscultation bilaterally, no rales, no rhonchi and no wheezes Cardio Rate: regular rate Rhythm: regular rhythm Heart Sounds: S1 normal, S2 normal and no murmurs Pulses: radial pulses present bilaterally GI Inspection: normal to inspection Palpation: soft Skin General skin exam: no rashes or lesions noted Neuro General: patient alert, patient awake and patient oriented x3 Extrem General: no clubbing, cyanosis or edema Psych Mental Status: mental status grossly normal Affect: normal affect Attitude: cooperative Most Recent VS/Results Last Vital Signs Temp 36.8 C 03/21/21 04:25 Pulse 82 03/21/21 04:00 Resp 15 03/21/21 04:25 BP 161/101 H 03/21/21 04:00 Pulse Ox 99 03/21/21 04:25 Laboratory Results - last 24 hr 03/21/21 06:20 Sodium 135 L Potassium 3.1 L Chloride 98 Carbon Dioxide 27.9 Anion Gap 9.1 BUN 6 L Creatinine 0.9 Estimated GFR/1.73 m2 >= 60.00 Glucose 186 H D Calcium 8.3 L Magnesium 1.7 L Total Bilirubin 0.6 Conjugated Bilirubin 0.1 AST 64 H ALT 62 Alkaline Phosphatase 108 Total Protein 8.1 Albumin 3.8 Review of Systems All systems reviewed & are unremarkable except as noted in HPI and below Time spent with patient Time spent in Critical Care: 35 Time spent in Critical care included: Coordination of care, Chart review, Documenting critically ill care, Time at immediate bedside and Discussing critically ill care with other medical staff
[2021-03-21] MEDS: LORazepam 2 MG/ML VIAL IVP (09:00)
--- NOTE | 2021-03-21 11:15 | CMPROGNOTE_ITS ---
- If Service Date Differs Date of service: 03/21/21 Time of Service: 11:15 Care Management Progress Note S/O:Juancarlos was lying in bed when CM met with him. He was dozing but woke up enough to answer questions. When asked he stated that he was feeling better. CM asked if he was interested in a diving coach and he clearly stated no. He denied ever having received treatment for his alcohol use and emphatically informed CM that he is not interested at this time either. Per staff, his radha etienne stated that she would like him to get treatment, however understands that it must be his choice. A: April is a 55 year old man admitted on 03/19/21 with pancreatitis P:April will likely be discharged home with no new services except for help with his substance use disorder, if he changes his mind and is agreeable. He will follow up with his community providers and plan of care and transport with family. CM will continue to support Juancarlos and assess for ongoing discharge needs.
--- NOTE | 2021-03-21 13:36 | W.NUTRFU ---
Date of service: 03/21/21 Time of Service: 13:36 Nutritional Follow up NOTE: 55yr male with COVID and Etoh w/d. PMH of chronic alcoholic pancreatitis significant to nutrition status. Meds: amlodipine, buspirone (caution w/ gf juice), losartan. Current BMI of 24.1 WNL. Noted ~8kg wt decrease recorded over 24 hours, however believe this to be scale error as he is not on diuretics at this time and po intake looks good. Nutrition needs estimate: 2402kcals ([id number]), 80g protein (1-1.5g/kg r/t chronic pancreatitis) and 2402cc fluid (1cc/kcal). Diet advanced this morning from clears to HH/low acid/bland/lowfat diet order. Diagnosis: Increased nutrition needs r/t excessive alcohol intake AEB ethyl alcohol level of >400 on 03/19/21. Intervention: Continue to advance diet as tolerated with continued current protocol for nutrient repletion/support due alcohol-induced altered metabolism. Monitoring/evaluation: Will continue to monitor weight, diet toleration, and nutrition related labs for further intervention. Time Spent in Nutritional Counseling and Treatment: 20
[2021-03-21] MEDS: Ondansetron 4 MG/2 ML VIAL IVP (17:16)
[2021-03-21] MEDS: Pantoprazole 40 MG TABCR PO (20:38)
[2021-03-22 00:05] VITALS: BP 166/101; PULSE 79; RESP 17; TEMP 36.9; O2SAT 100
[2021-03-22 00:12] VITALS: BP 162/90
[2021-03-22] MEDS: Ondansetron 4 MG/2 ML VIAL IVP (02:26)
[2021-03-22] MEDS: Acetaminophen 325 MG TAB 650 MG PO (02:26)
[2021-03-22] MEDS: Normal Saline Flush 10 ML SYR IVP ×3 (02:27→11:09)
[2021-03-22] MEDS: chlordiazePOXIDE 25 MG CAP PO ×3 (07:42→16:38)
[2021-03-22] MEDS: Losartan 50 MG TAB 100 MG PO (07:43)
[2021-03-22] MEDS: Multivitamin TAB 1 TAB PO (07:43)
[2021-03-22] MEDS: amLODIPine 10 MG TAB PO (07:43)
[2021-03-22] MEDS: Pantoprazole 40 MG TABCR PO (07:43)
[2021-03-22] MEDS: Metoprolol CR 50 MG TABCR 200 MG PO (07:43)
[2021-03-22] MEDS: Thiamine 100 MG TAB PO (07:44)
[2021-03-22] MEDS: Sucralfate 1 GM TAB PO ×3 (07:44→16:38)
[2021-03-22] MEDS: Folic Acid 1 MG TAB PO (07:44)
[2021-03-22 07:55] LABS: Abs Immature Grans 0.01 10^3/uL (0.0-0.06); Absolute Basophil Count 0.03 10^3/uL (0.0-0.2); Absolute Eosinophil Count 0.23 10^3/uL (0.0-0.7); Absolute Lymphocyte Count 1.48 10^3/uL (1.2-3.4); Absolute Monocyte Count 0.46 10^3/uL (0.1-0.8); Absolute Neutrophil Count 4.06 10^3/uL (1.2-6.7); Basophils % 0.5; Eosinophils % 3.7; HCT 36.1 % (40.0-50.0); HGB 12.3 g/dL (13.5-17.5); Immature Grans % 0.2; Lymphocytes % 23.6; MCH 31.5 pg (27.0-33.0); MCHC 34.1 % (32.0-36.0); MCV 92.6 fL (80-95); MPV 11.5 fL (8.0-11.0); Monocytes % 7.3; Neutrophils % 64.7; Nucleated RBC 0 %; RDW 11.7 % (11.8-14.1); RDW-SD 39.9 fL; WBC 6.27 10^3/uL (4.4-10.8)
[2021-03-22 08:12] LABS: Anion Gap 8.6 mmol/L (3-11); BUN 8 mg/dL (7-18); CO2 26.4 mmol/L (21.0-32.0); CREATININE 0.9 mg/dL (0.70-1.30); Calcium 8.6 mg/dL (8.5-10.1); Chloride 100 mmol/L (98-107); Glucose 179 mg/dL (74-106); Magnesium 1.8 mg/dL (1.8-2.4); Potassium 3.2 mmol/L (3.5-5.1); Sodium 135 mmol/L (136-145)
[2021-03-22 08:22] LABS: Platelet Count 90 10^3/uL (130-400)
[2021-03-22 08:39] VITALS: BP 137/100; PULSE 86; RESP 16; TEMP 36.6; O2SAT 99
--- NOTE | 2021-03-22 08:47 | PDOC.CMPRO ---
- If Service Date Differs Date of service: 03/22/21 Time of Service: 08:47 Care Management Progress Note S/O: A: April is a 55 year old man admitted on 03/19/21 with pancreatitis P:April will likely be discharged home with no new services except for help with his substance use disorder, if he changes his mind and is agreeable. He will follow up with his community providers and plan of care and transport with family. CM will continue to support Juancarlos and assess for ongoing discharge needs.
[2021-03-22] MEDS: MAGNESIUM SULFATE 2 GM/50 ML BAG IVPB (11:06)
[2021-03-22] MEDS: POTASSIUM CHLORIDE 20 MEQ/100 ML BAG 50 MEQ IVPB ×2 (11:06→13:16)
[2021-03-22 15:30] VITALS: BP 153/96; PULSE 72; RESP 16; TEMP 36.3; O2SAT 100
--- NOTE | 2021-03-22 15:59 | DSE_ITS ---
Date of service: 03/22/21 Time of Service: 16:00 DS: Diagnosis Discharge Diagnosis (1) Acute on chronic pancreatitis: Status: Resolved (2) Alcohol withdrawal: Status: Resolved (3) Normocytic anemia: Status: Acute (4) Thrombocytopenia: Status: Chronic (5) Hypomagnesemia: Status: Acute (6) Hypokalemia: Status: Acute (7) Renal mass, right: Status: Acute (8) H/O gastric ulcer: Status: Chronic (9) Hypocalcemia: Status: Resolved (10) COVID-19 ruled out by laboratory testing: Status: Ruled-out Discharge Plan Disposition Patient Disposition: HOME Condition: Stable Discharge Details Reason For Visit: Pancreatitis Admit Date/Time: 03/19/21 20:30 Admit Provider: Rubén Jaime Attending Provider: Rubén Jaime Primary Care Provider: Unknown,Unknown Hospital Course Hospital Course: Mr Lee is a 55 year old male with PMHx of alcohol abuse with h/o prior alcohol withdrawal seizures, ?chronic pancreatitis, gastric ulcer, hypertension, who was admitted to [facility] hospitalist service on 03/19/21 with acute on chronic alcoholic pancreatitis. He was treated with IV hydration as well as pain medications and quickly improved, tolerating a diet. He showed signs of mild alcohol withdrawal and, given his h/o alcohol withdrawal seizures, was transferred to the ICU for closer monitoring on 03/20/21. He was initiated on scheduled librium in addition to prn lorazepam per CIWA scale and did quite well from that stand point, so he was transferred back out of the ICU on 03/21/21 when it became obvious that his withdrawal symptoms were not escalating. He is b eing discharged home today with a short librium taper. 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 While in our facility, CT scan of his abdomen revealed an exophytic nodule of his right kidney. This was evaluated by Dr Clemens of urology, who will follow up with the patient as outpatient to arrange a percutaneous biopsy, for which he will have to go to a tertiary care center. He should follow up for his previously scheduled EGD. He should follow up with his PCP. On this admission he was noted to be slightly thrombocytopenic - his bloodwork should be rechecked in 1 week. Care for patient as well as completion of his discharge summary on day of discharge took 45 minutes. Home Meds and New Rx's Prescriptions: New multivitamin [Multiple Vitamins] Tablet 1 tab PO QAM Qty: 30 RF: 0 sucralfate 1 gram Tablet 1 g PO AC & HS Qty: 120 RF: 0 thiamine mononitrate (vit B1) [Vitamin B-1 (mononitrate)] 100 mg Tablet 100 mg PO QAM Qty: 30 RF: 0 chlordiazepoxide HCl 5 mg capsule See Rx Instructions .ROUTE .COMPLEX Qty: 21 RF: 0 Continued losartan 100 mg Tablet 100 mg PO DAILY RF: 0 metoprolol succinate 200 mg Tablet Extended Release 24 Hr 200 mg PO DAILY RF: 0 amlodipine 10 mg Tablet 10 mg PO DAILY RF: 0 buspirone 15 mg Tablet 7.5 mg PO BID RF: 0 ondansetron 4 mg Film 4 mg PO Q6H PRN PRNRF: 0 omeprazole 40 mg capsule,delayed release(DR/EC) 40 mg PO DAILY RF: 0 Discharge Instructions Instructions: Chlordiazepoxide (By mouth), Alcohol Withdrawal (DC) Stand Alone Forms: Nursing Discharge Form Referrals: Feliz Clemens MD [ [facility] STAFF PHYSICIAN] - (R renal mass. Please call the office tomorrow to schedule appointment.) Activity:: Activity as Tolerated Equipment/Supplies:: No Equipment Needed Diet:: bland low fat diet Discharge Orders Discharge Orders: Discharge Order (Routine); Ordered 03/22/21 Ordered By: Chelsea Villatoro Other Ambulatory Orders: Basic Metabolic Panel (Routine) Timeframe: 1 Week Location: Determined by Patient Ordered By: Chelsea Villatoro Complete Blood Count w/Diff (Routine) Timeframe: 1 Week Location: Determined by Patient Ordered By: Chelsea Villatoro Magnesium (Routine) Timeframe: 1 Week Location: Determined by Patient Ordered By: Chelsea Villatoro DS: Summary Time Spent with Patient providing and/or coordinating discharge services: Greater than 30 minutes Status at Discharge Functional status at discharge: independent ambulation Overall status at discharge: patient is back to baseline Mental Status: mental status grossly normal Speech and Movement: speech and movement normal Mood: congruent mood Affect: normal affect Exam Narrative Exam Narrative: General: Very alert male, A&Ox3, dressed in Civilian clothes HEENT: EOMI, MMM Heart: RRR, no m/r/g Lungs: CTAB Abdomen: soft, nontender, nondistended Extremities: no edema BLE's Psych Mental Status: mental status grossly normal Speech and Movement: speech and movement normal Mood: congruent mood Affect: normal affect DS: Data Vitals/I&O Vitals and I&O: Vital Signs Temperature 36.6 C 03/22/21 08:39 Temperature Source Tympanic 03/22/21 08:39 Pulse 86 03/22/21 08:39 Pulse Rhythm Regular 03/22/21 08:30 Pulse 65 03/21/21 19:00 Respiratory Rate 16 03/22/21 08:39 Respiratory Effort Non-Labored 03/22/21 08:30 Respiratory Depth Normal 03/22/21 08:30 Respiratory Pattern Normal 03/22/21 08:30 Blood Pressure 137/100 H 03/22/21 08:39 Blood Pressure Mean 111 03/21/21 18:01 Blood Pressure Position Supine 03/21/21 12:00 Pulse Oximetry 99 03/22/21 08:39 Oxygen Delivery Method Room Air 03/22/21 08:39 Oxygen Flow Rate 0 03/22/21 08:39 Pain Level 0 03/22/21 08:39 Comment 03/22/21 00:12 Intake & Output 03/21/21 03/22/21 03/22/21 23:59 11:59 23:59 Intake Total 606.667 / 3085.834 950 / 950 Output Total 700 / 3325 1000 / 1000 Balance -93.333 / -239.166 -1000 / -50 950 / -50 Weight 81 kg Intake: IV 226.667 / 1505.834 100 / 100 Oral 380 / 1580 850 / 850 Output: Urine 700 / 3325 1000 / 1000 Other: Urine Color Pale Light Kelly Yellow Urine Appearance Clear Clear Urine Odor None None Comment pt voiding independentl. pt denies issues per patient Voiding Methods Toilet Toilet Data Completed and Pending Completed studies during hospitalization [Text1]: CT abdomen/pelvis: 1. Main acute finding here is acute pancreatitis. There is peripancreatic streaking but presently no evidence fluid collection or pseudocyst. 2. Mild amount of fluid around the gallbladder. No obvious calcified gallst ones. This could be further investigated with ultrasound. 3. In the lateral cortex of the right kidney there is a 2 x 1.6 cm partially exophytic nodule which is too dense to be a simple cyst in either represents complicated cyst or neoplasm. Recommend follow-up ultrasound. Labs on day of discharge: Labs from last 24 hours 03/22/21 03/22/21 06:53 06:53 WBC 6.27 RBC 3.90 L Hgb 12.3 L Hct 36.1 L MCV 92.6 MCH 31.5 MCHC 34.1 RDW 11.7 L Plt Count 90 L MPV 11.5 H Immature Gran % 0.2 Neutrophils % 64.7 Lymphocytes % 23.6 Monocytes % 7.3 Eosinophils % 3.7 Basophils % 0.5 Nucleated RBC % 0 Absolute Neutrophils 4.06 Absolute Lymphocytes 1.48 Absolute Monocytes 0.46 Absolute Eosinophils 0.23 Absolute Basophils 0.03 Sodium 135 L Potassium 3.2 L Chloride 100 Carbon Dioxide 26.4 Anion Gap 8.6 BUN 8 Creatinine 0.9 Estimated GFR/1.73 m2 >= 60.00 Glucose 179 H Calcium 8.6 Magnesium 1.8 PFSH Medical History (Updated 03/22/21 @ 16:03 by Chelsea Villatoro MD) Alcohol abuse Hypertension Renal mass, right Social History Smoking/Tobacco Use Status: Former Tobacco Use Smoking risk assessment performed?: Yes Alcohol Intake: current Alcohol Intake frequency: 0-2 drinks per day Substance use type: does not use Do you feel safe at home: Yes Do you feel safe in your relationship?: Yes Additional Social history: pt feels too much stress at work, c/o anxiety
--- NOTE | 2021-03-22 17:56 | PDOC.CMDIS ---
- If Service Date Differs Date of service: 03/22/21 Time of Service: 17:56 LACE Index Scoring Tool - Questions: Length of Stay (in days): 3 Acuity (Admit via E.D.?): Yes E.D. Visits: 1 - Answers: Total Score: 7 Risk of Readmission: Low Risk Care Management Discharge Reason for Hospitalization: Pancreatitis Discharge Plan: April will be discharged home with no new services. He is refusing help with his substance use disorder. He will follow up with his community providers and plan of care and transport with family. Patient/Family Education Needs: Review of discharge instructions,medications, activity, follow up plan, Ask Me Three
== END 2021-03-22 18:15 | disposition home or self-care (01) | DRG 439 ==
LOC: ER 21:12 → ICU 21:58 → MS 03-21 19:12
PROVIDERS: Internal Medicine; Admitting Provider General Practice; Emergency Provider Physician Assistant; Visit Provider General Practice
DX: K85.20 Alcohol induced acute pancreatitis without necrosis or infection (principal); F10.239 Alcohol dependence with withdrawal, unspecified; E87.6 Hypokalemia; E83.42 Hypomagnesemia; I10 Essential (primary) hypertension; N28.89 Other specified disorders of kidney and ureter; Z87.891 Personal history of nicotine dependence; Z20.822 Contact with and (suspected) exposure to COVID-19; Y90.8 Blood alcohol level of 240 mg/100 ml or more; Z87.11 Personal history of peptic ulcer disease; E83.51 Hypocalcemia; K86.0 Alcohol-induced chronic pancreatitis; F10.229 Alcohol dependence with intoxication, unspecified; D64.9 Anemia, unspecified; D69.6 Thrombocytopenia, unspecified
CPT/HCPCS: 36415; 80048; 80053; 80076; 83690; 87635; 93005; 96361; 96374; 99285; J1650; 74177; 80320; 83735; 84484; 85025; 93010; 99222; 99233; 99239; 99291; J2060; J2405; J3475; J3480; J3490